=== PATIENT | male | born 1960 | race Caucasian/White ===

== ENCOUNTER 2018-08-16 08:15 | Outpatient (RCR) | payer BC, SELFPAY ==
--- NOTE | 2018-06-24 16:30 | PT.OPPOC ---
Current Diagnoses Presence of left artificial hip joint (06/24/18) Provider Visit Care Team Role Provider Type Froilan Hines MD Primary Care Provider Physician Specialty: Internal Medicine Address: [address] [place] [address], [id number] Email: Ronen Turcios MD Attending Provider Non-Staff Specialty: Orthopedic Surgery Address: [address] [place] [address], [id number] Email: Plan Of Care PT-OP-T Assessment and Plan Start: 06/07/18 14:05 Freq: Status: Active Protocol: Document 06/24/18 12:45 LRN (Rec: 06/24/18 17:03 LRN [id number]) Physical Therapy Assessment Rehab Potential Rehabilitation Potential Good Evaluation Complexity Number of Personal Factors/Comorbidities 1-2 Number of Body Systems Impaired 3 Clinical Presentation at Evaluation Stable Impairments Impairments Functional Activities Functional Mobility Pain Posture ROM Strength Other Concerns Barriers to Rehabilitation L RADAMES Goals Three Impairment Decreased L hip strength Penitentiary Goal (LTG) Stabilize L hip joint with elimination of pain on active L hip flexion. LTG Duration 08/16/18 Two Impairment L groin pain limiting function of lifting leg Penitentiary Goal (LTG) Pt will be able to lift the L leg to get in/out of a car, bed and with dressing without onset of pain. LTG Duration 08/16/18 One Impairment Lacks self halfway exercise program. Penitentiary Goal (LTG) Pt will be independent in a self halfway exercise program. LTG Duration 08/16/18 Assessment Summary Assessment The pt demonstrates possible intra-articular hip pathology with reproduction of his L anterior groin pain (positive Stinchfield Test and Anterior Labral Test). He has a muscle imbalance at the left hip due to weakness and a mobility imbalance that may be contributing to his intra- articular hip pathology. The pt will benefit from skilled physical therapy to improve mobility and strength at the hip, improve joint mechanics and minimize pain. Further assessment for possible Inguinal ligament involvement will be checked at his next visit. Physical Therapy Plan Frequency and Duration Frequency of Treatment 2x/Week Plan of Care Start Date 06/24/18 Plan of Care End Date 08/16/18 Therapeutic Interventions Therapeutic Interventions Home Exercise Program Joint Mobilizations Manual Therapy Neuromuscular Re-education Patient/Caregiver Education Self-Care/Home Management Soft Tissue Mobilization Therapeutic Exercises Modalities Cold Pack/Ice Massage Hot Packs Next Visit Focus/Plan Next Note Type Treatment Note Next Visit Plan Palpation for inguinal ligament, Iliopsoas involvement (hip joint mechanics), check gait/stairs and squatting, issue HEP of hip strengthening, improve pelvic positioning and posture , neuro-reeducation for proper seating of hip joint ball in socket, improve lumbar mobility, add lumbar stabilization. Plan of Care Dates Plan of Care Start Date 06/24/18 Plan of Care End Date 08/16/18 Please Sign and Return: I have reviewed this Plan of Care and certify that the skilled therapy services above are required to meet the patient?s needs. Physician Signature Date Printed Name and Credentials Clinical Instructor Signature Printed Name and Credentials
--- NOTE | 2018-06-24 16:30 | PT.OIE ---
Current Diagnoses Presence of left artificial hip joint (06/24/18) Past Medical History (Last Updated 02/14/18 @ 08:41 by Martha Johnson) Hyperlipidemia (Chronic) Hypertension (Chronic) Past Surgical History (Last Updated 02/14/18 @ 08:41 by Martha Johnson) Anesthesia (Resolved) History of hip replacement (Resolved 01/2012) Provider Visit Care Team Role Provider Type Froilan Hines MD Primary Care Provider Physician Specialty: Internal Medicine Address: [address] [place] [address], [id number] Email: Ronen Turcios MD Attending Provider Non-Staff Specialty: Orthopedic Surgery Address: [address] [place] [address], [id number] Email: Physical Therapy Initial Evaluation PT-OP-A Visit Information Start: 06/07/18 14:05 Freq: Status: Active Protocol: Document 06/24/18 12:45 LRN (Rec: 06/24/18 17:03 LRN [id number]) Out-Patient Physical Therapy Visit Information Visit Information Visit Type Initial Evaluation Visit Start Time 12:45 Visit Stop Time 13:42 Total Visit Minutes 57 Visit Number 1 Number of SHIP RIGGER APPRENTICE Visits 0 Evaluation Information Evaluation Date 06/24/18 PT-OP-B Current Condition Start: 06/07/18 14:05 Freq: Status: Active Protocol: Document 06/24/18 12:45 LRN (Rec: 06/24/18 17:03 LRN [id number]) Current Condition History of Current Condition Onset Date 1 yr ago Current Complaints L anterior groin pain. History of Current Condition Insidious onset. Pain present when lifting his leg and mildly with sit to stand. Prior Treatments and Tests L RADAMES - 01/2012 Future Testing and Treatments Planned None Treatment Goals Patient/Caregiver Goals Pt goal is to become painfree in order to avoid having a cortisone injection, that he feels will not be helpful. Prior Functional Status Baseline Function- ADL's Independent Baseline Function- Mobility Independent Current Functional Impairments (Reported) Functional Limitations- ADL's Any functional activity requiring open chain L hip flexion. 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 PT-OP-C Subjective Start: 06/07/18 14:05 Freq: Status: Active Protocol: Document 06/24/18 12:45 LRN (Rec: 06/24/18 17:03 LRN [id number]) Patient Questionnaires Lower Extremity Functional Scale LEFS Score 62 LEFS Impairment 20 to 39% Impaired (Score 48- 62) OP-PT Pain Assessment Pain Assessment Grid Paper Pain Assessment Grid Completed Yes Location L Anterior hip Pain Location Details L Groin region Intensity 6 Scale Used Numeric (1 - 10) Frequency When actively flexing the left hip Other Pain Alleviating Factors Discontinuing active flexing at the hip PT-OP-H Neuro Start: 06/07/18 14:05 Freq: Status: Active Protocol: Document 06/24/18 12:45 LRN (Rec: 06/24/18 17:03 LRN [id number]) Sensation Evaluation Gross Sensation Gross Sensation WNL Deep Tendon Reflex & Clonus Assessment Deep Tendon Reflex Achilles Deep Tendon Reflex 2+ Normal Bilateral Patellar Deep Tendon Reflex 2+ Normal PT-OP-J Posture/Palpation/Skin Start: 06/07/18 14:05 Freq: Status: Active Protocol: Document 06/24/18 12:45 LRN (Rec: 06/24/18 17:03 LRN [id number]) Posture Evaluation Position Standing Evaluation View All views Head/C-Spine Posture Neutral Position Shoulder Posture (L) Elevated Scapula Posture (L) Elevated (L) Winged Pelvis Posture (L) PSIS Posterior Knee Posture (L) Neutral (R) Neutral Foot Arch (R) Low Arch (L) No Arch Palpation Assessment Location Lumbar Spine Palpation Details No tenderness, decreased PA mobility. PT-OP-K Range of Motion Start: 06/07/18 14:05 Freq: Status: Active Protocol: Document 06/24/18 12:45 LRN (Rec: 06/24/18 17:03 LRN [id number]) Hip Goniometric Range of Motion Hip Measured in Degrees Right Passive Testing Position Supine Internal Rotation 45 External Rotation 55 Left Passive Testing Position Supine Internal Rotation 45 External Rotation 45 PT-OP-L Special Tests Start: 06/07/18 14:05 Freq: Status: Active Protocol: Document 06/24/18 12:45 LRN (Rec: 06/24/18 17:03 LRN [id number]) Special Tests Hip Special Tests Posterior Labral Test Test Results - Left Log Roll Test Test Results - Left Comments No pain. [facility] Hip Flexion Test Results + Left Comments L groin pain reproduced Anterior Labral Test Test Results + Left Comments L groin pain reproduced PT-OP-M Strength Start: 06/07/18 14:05 Freq: Status: Active Protocol: Document 06/24/18 12:45 LRN (Rec: 06/24/18 17:03 LRN [id number]) Hip Strength Hip Manual Muscle Testing Right Flexion (L2) 5 Normal Extension (S1) 4 Good Abduction 4 Good Adduction 5 Normal Left Flexion (L2) 2 Poor Extension (S1) 4 Good Abduction 4 Good Adduction 4 Good Comments Pain with testing of hip flexion and abduction. PT-OP-Q Treatments Start: 06/07/18 14:05 Freq: Status: Active Protocol: Document 06/24/18 12:45 LRN (Rec: 06/24/18 17:03 LRN [id number]) Therapeutic Exercises Sidelying Exercises Hip AD Side left Reps/Minutes 2 Comments Training Manual Therapy Treatment Manual Techniques MWM Type L3-L5 lift of spinous process and facets. Body Location Lumbar Body Position Standing Reps/Duration 4' Self-Care/Home Management Treatment Education Patient Education Home Exercise Program Posture Activities Self-Care/Home Management Activities I/S pt in home ex: L Leg lifts : AB/AD/Ext PT-OP-T Assessment and Plan Start: 06/07/18 14:05 Freq: Status: Active Protocol: Document 06/24/18 12:45 LRN (Rec: 06/24/18 17:03 LR [id number]) Physical Therapy Assessment Rehab Potential Rehabilitation Potential Good Evaluation Complexity Number of Personal Factors/Comorbidities 1-2 Number of Body Systems Impaired 3 Clinical Presentation at Evaluation Stable Impairments Impairments Functional Activities Functional Mobility Pain Posture ROM Strength Other Concerns Barriers to Rehabilitation L RADAMES Goals Three Impairment Decreased L hip strength Deckhand Oyster Dredge Goal (LTG) Stabilize L hip joint with elimination of pain on active L hip flexion. LTG Duration 08/16/18 Two Impairment L groin pain limiting function of lifting leg Longterm Goal (LTG) Pt will be able to lift the L leg to get in/out of a car, bed and with dressing without onset of pain. LTG Duration 08/16/18 One Impairment Lacks self custodial exercise program. Longterm Goal (LTG) Pt will be independent in a self custodial exercise program. LTG Duration 08/16/18 Assessment Summary Assessment The pt demonstrates possible intra-articular hip pathology with reproduction of his L anterior groin pain (positive Stinchfield Test and Anterior Labral Test). He has a muscle imbalance at the left hip due to weakness and a mobility imbalance that may be contributing to his intra- articular hip pathology. The pt will benefit from skilled physical therapy to improve mobility and strength at the hip, improve joint mechanics and minimize pain. Further assessment for possible Inguinal ligament involvement will be checked at his next visit. Physical Therapy Plan Frequency and Duration Frequency of Treatment 2x/Week Plan of Care Start Date 06/24/18 Plan of Care End Date 08/16/18 Therapeutic Interventions Therapeutic Interventions Home Exercise Program Joint Mobilizations Manual Therapy Neuromuscular Re-education Patient/Caregiver Education Self-Care/Home Management Soft Tissue Mobilization Therapeutic Exercises Modalities Cold Pack/Ice Massage Hot Packs Next Visit Focus/Plan Next Note Type Treatment Note Next Visit Plan Palpation for inguinal ligament, Iliopsoas involvement (hip joint mechanics), check gait/stairs and squatting, issue HEP of hip strengthening, improve pelvic positioning and posture , neuro-reeducation for proper seating of hip joint ball in socket, improve lumbar mobility, add lumbar stabilization.
--- NOTE | 2018-07-23 09:25 | PT.OTN ---
Current Diagnoses Presence of left artificial hip joint (07/23/18) Physical Therapy Treatment Note PT-OP-A Visit Information Start: 06/07/18 14:05 Freq: Status: Active Protocol: Document 07/23/18 08:18 LRN (Rec: 07/23/18 09:24 LRN [id number]) Out-Patient Physical Therapy Visit Information Visit Information Visit Type Treatment Note Visit Start Time 08:18 Visit Stop Time 09:10 Total Visit Minutes 52 Visit Number 2 Number of DELINQUENT NOTICE MACHINE OPERATOR Visits 0 Evaluation Information Evaluation Date 06/24/18 PT-OP-B Current Condition Start: 06/07/18 14:05 Freq: Status: Active Protocol: Document 06/24/18 12:45 LRN (Rec: 06/24/18 17:03 LRN [id number]) Current Condition History of Current Condition Onset Date 1 yr ago Current Complaints L anterior groin pain. History of Current Condition Insidious onset. Pain present when lifting his leg and mildly with sit to stand. Prior Treatments and Tests L 01/2012 Future Testing and Treatments Planned None Treatment Goals Patient/Caregiver Goals Pt goal is to become painfree in order to avoid having a cortisone injection, that he feels will not be helpful. Prior Functional Status Baseline Function- ADL's Independent Baseline Function- Mobility Independent Current Functional Impairments (Reported) Functional Limitations- ADL's Any functional activity requiring open chain L hip flexion. 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 PT-OP-C Subjective Start: 06/07/18 14:05 Freq: Status: Active Protocol: Document 07/23/18 08:18 LRN (Rec: 07/23/18 09:24 LRN [id number]) OP-PT Subjective Patient Comments Patient Comments No change. Doing ex's but not consistently. PT-OP-H Neuro Start: 06/07/18 14:05 Freq: Status: Active Protocol: Document 06/24/18 12:45 LRN (Rec: 06/24/18 17:03 LRN [id number]) Sensation Evaluation Gross Sensation Gross Sensation WNL Deep Tendon Reflex & Clonus Assessment Deep Tendon Reflex Achilles Deep Tendon Reflex 2+ Normal Bilateral Patellar Deep Tendon Reflex 2+ Normal PT-OP-J Posture/Palpation/Skin Start: 06/07/18 14:05 Freq: Status: Active Protocol: Document 06/24/18 12:45 LRN (Rec: 06/24/18 17:03 LRN [id number]) Posture Evaluation Position Standing Evaluation View All views Head/C-Spine Posture Neutral Position Shoulder Posture (L) Elevated Scapula Posture (L) Elevated (L) Winged Pelvis Posture (L) PSIS Posterior Knee Posture (L) Neutral (R) Neutral Foot Arch (R) Low Arch (L) No Arch Palpation Assessment Location Lumbar Spine Palpation Details No tenderness, decreased PA mobility. PT-OP-K Range of Motion Start: 06/07/18 14:05 Freq: Status: Active Protocol: Document 06/24/18 12:45 LRN (Rec: 06/24/18 17:03 LRN [id number]) Hip Goniometric Range of Motion Hip Measured in Degrees Right Passive Testing Position Supine Internal Rotation 45 External Rotation 55 Left Passive Testing Position Supine Internal Rotation 45 External Rotation 45 PT-OP-L Special Tests Start: 06/07/18 14:05 Freq: Status: Active Protocol: Document 06/24/18 12:45 LRN (Rec: 06/24/18 17:03 LRN [id number]) Special Tests Hip Special Tests Posterior Labral Test Test Results - Left Log Roll Test Test Results - Left Comments No pain. [facility] [place] Resisted Hip Flexion Test Results + Left Comments L groin pain reproduced Anterior Labral Test Test Results + Left Comments L groin pain reproduced PT-OP-M Strength Start: 06/07/18 14:05 Freq: Status: Active Protocol: Document 06/24/18 12:45 LRN (Rec: 06/24/18 17:03 LRN [id number]) Hip Strength Hip Manual Muscle Testing Right Flexion (L2) 5 Normal Extension (S1) 4 Good Abduction 4 Good Adduction 5 Normal Left Flexion (L2) 2 Poor Extension (S1) 4 Good Abduction 4 Good Adduction 4 Good Comments Pain with testing of hip flexion and abduction. PT-OP-Q Treatments Start: 06/07/18 14:05 Freq: Status: Active Protocol: Document 07/23/18 08:18 LRN (Rec: 07/23/18 09:24 LRN [id number]) Therapeutic Exercises Supine Exercises KTC Side left Reps/Minutes 3' Iliopsoas stretch Side left Reps/Minutes 3 Manual Therapy Treatment Soft Tissue Mobilization L lateral/intermedius Quad Mobilization Type Strumming Sustained Pressure Trigger Point Release Intensity/Depth Moderate Body Position Supine Comments No palpable L inguinal hernia noted. Neuro Re-Education Treatment Movement Re-Education Movement Re-education Activities Training for proper seating of femoral head in the acetabulum with hip flexion. Self-Care/Home Management Treatment Education Other Education Discussed plan of care and options of care (return to MD or PT), and self care for transfers in/out of car using arms to assist. PT-OP-T Assessment and Plan Start: 06/07/18 14:05 Freq: Status: Active Protocol: Document 07/23/18 08:18 LRN (Rec: 07/23/18 09:24 LRN [id number]) Physical Therapy Assessment Goals Three Impairment Decreased L hip strength Intermediate Goal (LTG) Stabilize L hip joint with elimination of pain on active L hip flexion. LTG Duration 08/16/18 Two Impairment L groin pain limiting function of lifting leg Intermediate Goal (LTG) Pt will be able to lift the L leg to get in/out of a car, bed and with dressing without onset of pain. LTG Duration 08/16/18 One Impairment Lacks self mcc exercise program. Intermediate Goal (LTG) Pt will be independent in a self mcc exercise program. LTG Duration 08/16/18 Progress Towards Goals Progress Towards Goals Progressing Toward Goals Progress Comments Goal #1 HEP: Initiated proper movement sequence Goal #2 Pt can march in supine 25% of time with assist and v ./physical cuing to 90 deg's hip flex w/o pain. Assessment Summary Assessment Pt was tender at L hip flexors proximally to palpation to start. He was able to get some relief of L anterior groin pain with assisted lift and verbal/physical cuing. Physical Therapy Plan Frequency and Duration Frequency of Treatment 2x/Week Plan of Care Start Date 06/24/18 Plan of Care End Date 08/16/18 Next Visit Focus/Plan Next Note Type Treatment Note Next Visit Plan Check squatting, start HEP of hip strengthening (AB/AD/ext), continue training of Iliopsoas proper sequencing ( hip joint mechanics), improve pelvic positioning and posture , improve lumbar mobility, add lumbar stabilization.
--- NOTE | 2018-07-26 10:20 | PT.OTN ---
Current Diagnoses Presence of left artificial hip joint (07/26/18) Physical Therapy Treatment Note PT-OP-A Visit Information Start: 06/07/18 14:05 Freq: Status: Active Protocol: Document 07/26/18 08:19 LRN (Rec: 07/26/18 09:01 LRN [id number]) Out-Patient Physical Therapy Visit Information Visit Information Visit Type Treatment Note Visit Start Time 08:19 Visit Stop Time 09:00 Total Visit Minutes 41 Visit Number 3 Number of MASS SPECTROMETRY SPECIALIST Visits 0 Evaluation Information Evaluation Date 06/24/18 PT-OP-B Current Condition Start: 06/07/18 14:05 Freq: Status: Active Protocol: Document 06/24/18 12:45 LRN (Rec: 06/24/18 17:03 LRN [id number]) Current Condition History of Current Condition Onset Date 1 yr ago Current Complaints L anterior groin pain. History of Current Condition Insidious onset. Pain present when lifting his leg and mildly with sit to stand. Prior Treatments and Tests L 01/2012 Future Testing and Treatments Planned None Treatment Goals Patient/Caregiver Goals Pt goal is to become painfree in order to avoid having a cortisone injection, that he feels will not be helpful. Prior Functional Status Baseline Function- ADL's Independent Baseline Function- Mobility Independent Current Functional Impairments (Reported) Functional Limitations- ADL's Any functional activity requiring open chain L hip flexion. 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 PT-OP-C Subjective Start: 06/07/18 14:05 Freq: Status: Active Protocol: Document 07/26/18 08:19 LRN (Rec: 07/26/18 09:01 LRN [id number]) OP-PT Subjective Patient Comments Patient Comments Does ex's here and there. PT-OP-H Neuro Start: 06/07/18 14:05 Freq: Status: Active Protocol: Document 06/24/18 12:45 LRN (Rec: 06/24/18 17:03 LRN [id number]) Sensation Evaluation Gross Sensation Gross Sensation WNL Deep Tendon Reflex & Clonus Assessment Deep Tendon Reflex Achilles Deep Tendon Reflex 2+ Normal Bilateral Patellar Deep Tendon Reflex 2+ Normal PT-OP-J Posture/Palpation/Skin Start: 06/07/18 14:05 Freq: Status: Active Protocol: Document 06/24/18 12:45 LRN (Rec: 06/24/18 17:03 LRN [id number]) Posture Evaluation Position Standing Evaluation View All views Head/C-Spine Posture Neutral Position Shoulder Posture (L) Elevated Scapula Posture (L) Elevated (L) Winged Pelvis Posture (L) PSIS Posterior Knee Posture (L) Neutral (R) Neutral Foot Arch (R) Low Arch (L) No Arch Palpation Assessment Location Lumbar Spine Palpation Details No tenderness, decreased PA mobility. PT-OP-K Range of Motion Start: 06/07/18 14:05 Freq: Status: Active Protocol: Document 06/24/18 12:45 LRN (Rec: 06/24/18 17:03 LRN [id number]) Hip Goniometric Range of Motion Hip Measured in Degrees Right Passive Testing Position Supine Internal Rotation 45 External Rotation 55 Left Passive Testing Position Supine Internal Rotation 45 External Rotation 45 PT-OP-L Special Tests Start: 06/07/18 14:05 Freq: Status: Active Protocol: Document 06/24/18 12:45 LRN (Rec: 06/24/18 17:03 LRN [id number]) Special Tests Hip Special Tests Posterior Labral Test Test Results - Left Log Roll Test Test Results - Left Comments No pain. [facility] Resisted Hip Flexion Test Results + Left Comments L groin pain reproduced Anterior Labral Test Test Results + Left Comments L groin pain reproduced PT-OP-M Strength Start: 06/07/18 14:05 Freq: Status: Active Protocol: Document 06/24/18 12:45 LRN (Rec: 06/24/18 17:03 LRN [id number]) Hip Strength Hip Manual Muscle Testing Right Flexion (L2) 5 Normal Extension (S1) 4 Good Abduction 4 Good Adduction 5 Normal Left Flexion (L2) 2 Poor Extension (S1) 4 Good Abduction 4 Good Adduction 4 Good Comments Pain with testing of hip flexion and abduction. PT-OP-Q Treatments Start: 06/07/18 14:05 Freq: Status: Active Protocol: Document 07/26/18 08:19 LRN (Rec: 07/26/18 09:01 LRN [id number]) Cardio Equipment Recumbent Stepper (Sci-Fit) Duration (Minutes) 10 Resistance 1 Other 19 Therapeutic Exercises Supine Exercises BKFO Supine Exercise Name Core Stab Side bilateral Resistance Lev 2 T-Band/Ball Reps/Minutes 10 x 2 sec holds Roll in/outs Side bilateral Resistance Lev 2 T-Band/Ball Reps/Minutes 10 with 6 sec holds Sidelying Exercises Clamshell Sidelying Exercise Name R sidelie Side left Reps/Minutes 15 Comments Self hand assist for leg Other Exercises Iliopsoas stretch Other Exercise Name Lunge on L knee Reps/Minutes 3' Comments 1' x 2 Manual Therapy Treatment Joint Mobilizations SIJ Joint Correction for anteriory rotated L innominate Body Position Supine Reps/Duration 8' Manual Techniques MWM standing Type With R hand: Moving L hip into AD; L hand: stabilize femur Body Position Standing Reps/Duration 7' MWM Type On Scifit: R hand: Moving L hip into AD; L hand: stabilize femur Body Position Sitting Reps/Duration 2' Self-Care/Home Management Treatment Education Patient Education Body Mechanics Home Exercise Program Other Education I/S pt in moving in/out of car , moving both legs at same time. HEP: Clamshell with T- Band issued (Lev 2). PT-OP-T Assessment and Plan Start: 06/07/18 14:05 Freq: Status: Active Protocol: Document 07/26/18 08:19 LRN (Rec: 07/26/18 09:01 LRN [id number]) Physical Therapy Assessment Progress Towards Goals Progress Towards Goals Progressing Toward Goals Progress Comments Goal #1 HEP: Proper sequencing taught & ex's added Goal #2 Pt can march in supine 25% of time with assist and v ./physical cuing to 90 deg's hip flex w/o pain. Assessment Summary Assessment He was able to get some relief of L anterior groin pain with MWM on the scifit but not in standing with hip at 90 deg's flexion. Pain relief with assisted lift of LLE. Pt has poor core control. Good tolerance to hip strengthening but weakness noted. Physical Therapy Plan Frequency and Duration Frequency of Treatment 2x/Week Plan of Care Start Date 06/24/18 Plan of Care End Date 08/16/18 Next Visit Focus/Plan Next Note Type Treatment Note Next Visit Plan Check squatting, Add HEP of hip strengthening (AD/ext), continue training of Iliopsoas proper sequencing (hip joint mechanics), improve pelvic positioning and posture, improve lumbar mobility, add lumbar stabilization.
--- NOTE | 2018-08-02 10:02 | PT.OTN ---
Current Diagnoses Presence of left artificial hip joint (08/02/18) Physical Therapy Treatment Note PT-OP-A Visit Information Start: 06/07/18 14:05 Freq: Status: Active Protocol: Document 08/02/18 08:12 [facility] (Rec: 08/02/18 10:02 [facility] [id number]) Out-Patient Physical Therapy Visit Information Visit Information Visit Type Treatment Note Visit Start Time 08:15 Visit Stop Time 09:00 Total Visit Minutes 45 Visit Number 4 Number of AIRWAY CONTROLLER Visits 0 PT-OP-B Current Condition Start: 06/07/18 14:05 Freq: Status: Active Protocol: Document 06/24/18 12:45 LRN (Rec: 06/24/18 17:03 LR [id number]) Current Condition History of Current Condition Onset Date 1 yr ago Current Complaints L anterior groin pain. History of Current Condition Insidious onset. Pain present when lifting his leg and mildly with sit to stand. Prior Treatments and Tests L 01/2012 Future Testing and Treatments Planned None Treatment Goals Patient/Caregiver Goals Pt goal is to become painfree in order to avoid having a cortisone injection, that he feels will not be helpful. Prior Functional Status Baseline Function- ADL's Independent Baseline Function- Mobility Independent Current Functional Impairments (Reported) Functional Limitations- ADL's Any functional activity requiring open chain L hip flexion. 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 PT-OP-C Subjective Start: 06/07/18 14:05 Freq: Status: Active Protocol: Document 08/02/18 08:12 [facility] (Rec: 08/02/18 10:02 [facility] [id number]) OP-PT Subjective Patient Comments Patient Comments Compliance with HEP, but has not noticed change yet. PT-OP-H Neuro Start: 06/07/18 14:05 Freq: Status: Active Protocol: Document 06/24/18 12:45 LRN (Rec: 06/24/18 17:03 LRN [id number]) Sensation Evaluation Gross Sensation Gross Sensation WNL Deep Tendon Reflex & Clonus Assessment Deep Tendon Reflex Achilles Deep Tendon Reflex 2+ Normal Bilateral Patellar Deep Tendon Reflex 2+ Normal PT-OP-J Posture/Palpation/Skin Start: 06/07/18 14:05 Freq: Status: Active Protocol: Document 06/24/18 12:45 LRN (Rec: 06/24/18 17:03 LRN [id number]) Posture Evaluation Position Standing Evaluation View All views Head/C-Spine Posture Neutral Position Shoulder Posture (L) Elevated Scapula Posture (L) Elevated (L) Winged Pelvis Posture (L) PSIS Posterior Knee Posture (L) Neutral (R) Neutral Foot Arch (R) Low Arch (L) No Arch Palpation Assessment Location Lumbar Spine Palpation Details No tenderness, decreased PA mobility. PT-OP-K Range of Motion Start: 06/07/18 14:05 Freq: Status: Active Protocol: Document 06/24/18 12:45 LRN (Rec: 06/24/18 17:03 LRN [id number]) Hip Goniometric Range of Motion Hip Measured in Degrees Right Passive Testing Position Supine Internal Rotation 45 External Rotation 55 Left Passive Testing Position Supine Internal Rotation 45 External Rotation 45 PT-OP-L Special Tests Start: 06/07/18 14:05 Freq: Status: Active Protocol: Document 06/24/18 12:45 LRN (Rec: 06/24/18 17:03 LRN [id number]) Special Tests Hip Special Tests Posterior Labral Test Test Results - Left Log Roll Test Test Results - Left Comments No pain. [facility] Flexion Test Results + Left Comments L groin pain reproduced Anterior Labral Test Test Results + Left Comments L groin pain reproduced PT-OP-M Strength Start: 06/07/18 14:05 Freq: Status: Active Protocol: Document 06/24/18 12:45 LRN (Rec: 06/24/18 17:03 LRN [id number]) Hip Strength Hip Manual Muscle Testing Right Flexion (L2) 5 Normal Extension (S1) 4 Good Abduction 4 Good Adduction 5 Normal Left Flexion (L2) 2 Poor Extension (S1) 4 Good Abduction 4 Good Adduction 4 Good Comments Pain with testing of hip flexion and abduction. PT-OP-Q Treatments Start: 06/07/18 14:05 Freq: Status: Active Protocol: Document 08/02/18 08:12 LR (Rec: 08/02/18 10:02 [facility] [id number]) Cardio Equipment Recumbent Stepper (Sci-Fit) Duration (Minutes) 5 Resistance 2 Other 17 Therapeutic Exercises Supine Exercises core facilitation Supine Exercise Name UE chop pattern to L for irradiation to core for improved faciliation Standing Exercises squat Standing Exercise Name squat w/cueing for form Reps/Minutes 15 iliopsoas stretch Standing Exercise Name iliopsoas stretch Side left Reps/Minutes 30 sec Manual Therapy Treatment Soft Tissue Mobilization iliacus Body Location iliacus & inguinal ligament Mobilization Type Rolling Sustained Pressure Intensity/Depth Moderate Body Position Supine Joint Mobilizations hip Joint hip Direction on axis ER FM gentle ant glide w/ER c/r PT-OP-T Assessment and Plan Start: 06/07/18 14:05 Freq: Status: Active Protocol: Document 08/02/18 08:12 [facility] (Rec: 08/02/18 10:02 [facility] [id number]) Physical Therapy Assessment Goals Three Impairment Decreased L hip strength Detention Goal (LTG) Stabilize L hip joint with elimination of pain on active L hip flexion. LTG Duration 08/16/18 Two Impairment L groin pain limiting function of lifting leg Detention Goal (LTG) Pt will be able to lift the L leg to get in/out of a car, bed and with dressing without onset of pain. LTG Duration 08/16/18 One Impairment Lacks self mcc exercise program. Portrait Studio Photographer Goal (LTG) Pt will be independent in a self mcc exercise program. LTG Duration 08/16/18 Assessment Summary Assessment Pt able to tolerate no hip flex to full ROM passively with no pain. He cont to demonstrate dec core control and cont to edu re: importance of this and his exercises. Pt has significant restriction in L iliacus & inguinal ligament with tenderness that improves with STM. He was encouraged to ice and sent with a to go ice pack today. Able to tolerate closed chain exercises including hip flexion. Physical Therapy Plan Frequency and Duration Frequency of Treatment 2x/Week Plan of Care Start Date 06/24/18 Plan of Care End Date 08/16/18 Next Visit Focus/Plan Next Note Type Treatment Note Next Visit Plan Add HEP of hip strengthening ( AD/ext), continue training of Iliopsoas proper sequencing ( hip joint mechanics), improve pelvic positioning and posture , improve lumbar mobility, add lumbar stabilization
--- NOTE | 2018-08-06 14:04 | PT.OTN ---
Current Diagnoses Presence of left artificial hip joint (08/06/18) Physical Therapy Treatment Note PT-OP-A Visit Information Start: 06/07/18 14:05 Freq: Status: Active Protocol: Document 08/06/18 08:16 LRN (Rec: 08/06/18 09:06 LRN [id number]) Out-Patient Physical Therapy Visit Information Visit Information Visit Type Treatment Note Visit Start Time 08:16 Visit Stop Time 09:04 Total Visit Minutes 48 Visit Number 5 Number of POCKET GRINDER OPERATOR Visits 0 Evaluation Information Evaluation Date 06/24/18 PT-OP-B Current Condition Start: 06/07/18 14:05 Freq: Status: Active Protocol: Document 06/24/18 12:45 LRN (Rec: 06/24/18 17:03 LRN [id number]) Current Condition History of Current Condition Onset Date 1 yr ago Current Complaints L anterior groin pain. History of Current Condition Insidious onset. Pain present when lifting his leg and mildly with sit to stand. Prior Treatments and Tests L 01/2012 Future Testing and Treatments Planned None Treatment Goals Patient/Caregiver Goals Pt goal is to become painfree in order to avoid having a cortisone injection, that he feels will not be helpful. Prior Functional Status Baseline Function- ADL's Independent Baseline Function- Mobility Independent Current Functional Impairments (Reported) Functional Limitations- ADL's Any functional activity requiring open chain L hip flexion. 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 PT-OP-C Subjective Start: 06/07/18 14:05 Freq: Status: Active Protocol: Document 08/06/18 08:16 LRN (Rec: 08/06/18 09:06 LRN [id number]) OP-PT Subjective Patient Comments Patient Comments Stretching more. Thinks maybe its not as noticeable. PT-OP-H Neuro Start: 06/07/18 14:05 Freq: Status: Active Protocol: Document 06/24/18 12:45 LRN (Rec: 06/24/18 17:03 LRN [id number]) Sensation Evaluation Gross Sensation Gross Sensation WNL Deep Tendon Reflex & Clonus Assessment Deep Tendon Reflex Achilles Deep Tendon Reflex 2+ Normal Bilateral Patellar Deep Tendon Reflex 2+ Normal PT-OP-J Posture/Palpation/Skin Start: 06/07/18 14:05 Freq: Status: Active Protocol: Document 06/24/18 12:45 LRN (Rec: 06/24/18 17:03 LRN [id number]) Posture Evaluation Position Standing Evaluation View All views Head/C-Spine Posture Neutral Position Shoulder Posture (L) Elevated Scapula Posture (L) Elevated (L) Winged Pelvis Posture (L) PSIS Posterior Knee Posture (L) Neutral (R) Neutral Foot Arch (R) Low Arch (L) No Arch Palpation Assessment Location Lumbar Spine Palpation Details No tenderness, decreased PA mobility. PT-OP-K Range of Motion Start: 06/07/18 14:05 Freq: Status: Active Protocol: Document 06/24/18 12:45 LRN (Rec: 06/24/18 17:03 LRN [id number]) Hip Goniometric Range of Motion Hip Measured in Degrees Right Passive Testing Position Supine Internal Rotation 45 External Rotation 55 Left Passive Testing Position Supine Internal Rotation 45 External Rotation 45 PT-OP-L Special Tests Start: 06/07/18 14:05 Freq: Status: Active Protocol: Document 06/24/18 12:45 LRN (Rec: 06/24/18 17:03 LRN [id number]) Special Tests Hip Special Tests Posterior Labral Test Test Results - Left Log Roll Test Test Results - Left Comments No pain. [facility] Flexion Test Results + Left Comments L groin pain reproduced Anterior Labral Test Test Results + Left Comments L groin pain reproduced PT-OP-M Strength Start: 06/07/18 14:05 Freq: Status: Active Protocol: Document 06/24/18 12:45 LRN (Rec: 06/24/18 17:03 LRN [id number]) Hip Strength Hip Manual Muscle Testing Right Flexion (L2) 5 Normal Extension (S1) 4 Good Abduction 4 Good Adduction 5 Normal Left Flexion (L2) 2 Poor Extension (S1) 4 Good Abduction 4 Good Adduction 4 Good Comments Pain with testing of hip flexion and abduction. PT-OP-Q Treatments Start: 06/07/18 14:05 Freq: Status: Active Protocol: Document 08/06/18 08:16 LRN (Rec: 08/06/18 09:06 LRN [id number]) Cardio Equipment Recumbent Stepper (Sci-Fit) Duration (Minutes) 13 Resistance 2 Other 17 Therapeutic Exercises Supine Exercises Iliopsoas stretch Side left Reps/Minutes 5 Prone Exercises Hip Ext Side right Reps/Minutes 8' Comments Training needed for core stab with exercise. Standing Exercises squat Standing Exercise Name squat w/cueing for form Reps/Minutes 15 iliopsoas stretch Standing Exercise Name iliopsoas stretch Side left Reps/Minutes 30 sec Other Exercises Iliopsoas stretch Other Exercise Name Lunge on L knee Side left Reps/Minutes 3' Comments 1' x 2 Manual Therapy Treatment Soft Tissue Mobilization iliacus Body Location L. Iliacus & Inguinal ligament Mobilization Type Rolling Sustained Pressure Intensity/Depth Moderate Body Position Supine Joint Mobilizations SIJ Joint Correction for a L innominate Outflare Body Position Supine Reps/Duration 8' Manual Techniques MWM Type On Scifit: R hand: Moving L hip into AD; L hand: stabilize femur Body Position Sitting Reps/Duration 2' Comments R hand stabilize femur, added Inferior glide of femur. PT-OP-T Assessment and Plan Start: 06/07/18 14:05 Freq: Status: Active Protocol: Document 08/06/18 08:16 LRN (Rec: 08/06/18 09:06 LRN [id number]) Physical Therapy Assessment Other Concerns Barriers to Rehabilitation L RADAMES Progress Towards Goals Progress Towards Goals Progressing Toward Goals Progress Comments Goal #1 HEP: Proper sequencing taught & ex's added Goal #2 Slight lessening of pain with lifting of leg for dressing. Pt can march in supine 25% of time with assist and v./physical cuing to 90 deg's hip flex w/o pain. Assessment Summary Assessment Pt is s/p old L RADAMES. Palpable pain present at L inguinal ligament. He demonstrates dec core control and needs cont'd edu re: importance of core stabs with his exercises . Pt has less restriction in L iliacus & inguinal ligament. Today no change with tenderness with STM. He was encouraged to ice. Pain with heel slide at end of treatment . Improved ability to stabilize core with prone hip ext by end of exercise training. Trunk and Sacrum was in L rotation, not able to stabilize correctioin. Physical Therapy Plan Frequency and Duration Frequency of Treatment 2x/Week Plan of Care Start Date 06/24/18 Plan of Care End Date 08/16/18 Next Visit Focus/Plan Next Note Type Treatment Note Next Visit Plan Check for lumbar/sacral positioning and correct L rotation if needed. Add HEP of hip strengthening (AD/ext), continue training of Iliopsoas proper sequencing ( hip joint mechanics), improve pelvic positioning and posture , improve lumbar mobility, progress lumbar stabilization
--- NOTE | 2018-08-09 15:02 | PT.OTN ---
Current Diagnoses Presence of left artificial hip joint (08/09/18) Physical Therapy Treatment Note PT-OP-A Visit Information Start: 06/07/18 14:05 Freq: Status: Active Protocol: Document 08/09/18 08:15 LRN (Rec: 08/09/18 09:01 LRN [id number]) Out-Patient Physical Therapy Visit Information Visit Information Visit Type Progress Note Visit Start Time 08:15 Visit Stop Time 09:10 Total Visit Minutes 55 Visit Number 6 Number of GEEK SQUAD MANAGER Visits 0 Evaluation Information Evaluation Date 06/24/18 PT-OP-B Current Condition Start: 06/07/18 14:05 Freq: Status: Active Protocol: Document 06/24/18 12:45 LRN (Rec: 06/24/18 17:03 LRN [id number]) Current Condition History of Current Condition Onset Date 1 yr ago Current Complaints L anterior groin pain. History of Current Condition Insidious onset. Pain present when lifting his leg and mildly with sit to stand. Prior Treatments and Tests L 01/2012 Future Testing and Treatments Planned None Treatment Goals Patient/Caregiver Goals Pt goal is to become painfree in order to avoid having a cortisone injection, that he feels will not be helpful. Prior Functional Status Baseline Function- ADL's Independent Baseline Function- Mobility Independent Current Functional Impairments (Reported) Functional Limitations- ADL's Any functional activity requiring open chain L hip flexion. 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 PT-OP-C Subjective Start: 06/07/18 14:05 Freq: Status: Active Protocol: Document 08/09/18 08:15 LRN (Rec: 08/09/18 09:01 LRN [id number]) OP-PT Subjective Patient Comments Patient Comments Not consistent with ex's. No change. PT-OP-H Neuro Start: 06/07/18 14:05 Freq: Status: Active Protocol: Document 06/24/18 12:45 LRN (Rec: 06/24/18 17:03 LRN [id number]) Sensation Evaluation Gross Sensation Gross Sensation WNL Deep Tendon Reflex & Clonus Assessment Deep Tendon Reflex Achilles Deep Tendon Reflex 2+ Normal Bilateral Patellar Deep Tendon Reflex 2+ Normal PT-OP-J Posture/Palpation/Skin Start: 06/07/18 14:05 Freq: Status: Active Protocol: Document 06/24/18 12:45 LRN (Rec: 06/24/18 17:03 LRN [id number]) Posture Evaluation Position Standing Evaluation View All views Head/C-Spine Posture Neutral Position Shoulder Posture (L) Elevated Scapula Posture (L) Elevated (L) Winged Pelvis Posture (L) PSIS Posterior Knee Posture (L) Neutral (R) Neutral Foot Arch (R) Low Arch (L) No Arch Palpation Assessment Location Lumbar Spine Palpation Details No tenderness, decreased PA mobility. PT-OP-K Range of Motion Start: 06/07/18 14:05 Freq: Status: Active Protocol: Document 06/24/18 12:45 LRN (Rec: 06/24/18 17:03 LRN [id number]) Hip Goniometric Range of Motion Hip Measured in Degrees Right Passive Testing Position Supine Internal Rotation 45 External Rotation 55 Left Passive Testing Position Supine Internal Rotation 45 External Rotation 45 PT-OP-L Special Tests Start: 06/07/18 14:05 Freq: Status: Active Protocol: Document 06/24/18 12:45 LRN (Rec: 06/24/18 17:03 LRN [id number]) Special Tests Hip Special Tests Posterior Labral Test Test Results - Left Log Roll Test Test Results - Left Comments No pain. [facility] Flexion Test Results + Left Comments L groin pain reproduced Anterior Labral Test Test Results + Left Comments L groin pain reproduced PT-OP-M Strength Start: 06/07/18 14:05 Freq: Status: Active Protocol: Document 06/24/18 12:45 LRN (Rec: 06/24/18 17:03 LRN [id number]) Hip Strength Hip Manual Muscle Testing Right Flexion (L2) 5 Normal Extension (S1) 4 Good Abduction 4 Good Adduction 5 Normal Left Flexion (L2) 2 Poor Extension (S1) 4 Good Abduction 4 Good Adduction 4 Good Comments Pain with testing of hip flexion and abduction. PT-OP-Q Treatments Start: 06/07/18 14:05 Freq: Status: Active Protocol: Document 08/09/18 08:15 LRN (Rec: 08/09/18 09:01 LRN [id number]) Therapeutic Exercises Supine Exercises Roll in/outs Side bilateral Resistance Lev 2 T-Band/Ball Reps/Minutes 10 with 6 sec holds KTC Side left Reps/Minutes 3' Iliopsoas stretch Side left Reps/Minutes 5 Prone Exercises BRITNI Reps/Minutes 10x Other Exercises Iliopsoas stretch Other Exercise Name Lunge on L knee Side left Reps/Minutes 3' Comments 1' x 2 Manual Therapy Treatment Soft Tissue Mobilization iliacus Body Location L. Iliacus & Inguinal ligament Mobilization Type Rolling Sustained Pressure Intensity/Depth Moderate Body Position Supine L lateral/intermedius Quad Mobilization Type Myofascial Release Intensity/Depth Superficial Body Position Supine Comments No palpable L inguinal hernia noted. Joint Mobilizations SIJ Joint Correction for a L innominate anterior rot Body Position Supine Reps/Duration 8' Self-Care/Home Management Treatment Education Other Education Discussed need for being consistent with home ex's. PT-OP-T Assessment and Plan Start: 06/07/18 14:05 Freq: Status: Active Protocol: Document 08/09/18 08:15 LRN (Rec: 08/09/18 09:01 LRN [id number]) Physical Therapy Assessment Rehab Potential Rehabilitation Potential Fair Evaluation Complexity Number of Personal Factors/Comorbidities 1-2 Number of Body Systems Impaired 3 Clinical Presentation at Evaluation Stable Impairments Impairments Functional Activities Functional Mobility Pain Posture ROM Strength Other Concerns Barriers to Rehabilitation L RADAMES Goals Three Impairment Decreased L hip strength Linux Network Administrator Goal (LTG) Stabilize L hip joint with elimination of pain on active L hip flexion. LTG Duration 08/16/18 (Minimal change) Two Impairment L groin pain limiting function of lifting leg Linux Network Administrator Goal (LTG) Pt will be able to lift the L leg to get in/out of a car, bed and with dressing without onset of pain. LTG Duration 08/16/18 (Minimial change) One Impairment Lacks self senior living exercise program. Linux Network Administrator Goal (LTG) Pt will be independent in a self senior living exercise program. LTG Duration 08/16/18 (Progressing) Progress Towards Goals Progress Towards Goals Progressing Toward Goals Progress Comments Goal #1 HEP: Proper sequencing taught & home ex's added Goal #2 Slight lessening of pain with lifting of leg for dressing. Pt can march in supine 25% of time with assist and v./physical cuing to 90 deg's hip flex w/o pain. Goal #3 HEP is being progressed. Assessment Summary Assessment Pt is s/p old L RADAMES. Palpable pain present at L inguinal ligament. He demonstrates dec core control and needs cont'd encouragement to do his exercises. Pt has less swelling in L iliacus & inguinal ligament, no change with tenderness on palpation. He was encouraged to ice more. Trunk and Sacrum was in L rotation and was able to correct, but not able to stabilize between treatments. The pt appears to have some swelling at the L Iliacus & Inguinal Ligament that may respond well to Iontophoresis; therefore recommend trying Iontophoresis to minimize L hip pain. Physical Therapy Plan Frequency and Duration Frequency of Treatment 2x/Week Plan of Care Start Date 06/24/18 Plan of Care End Date 08/23/18 Therapeutic Interventions Therapeutic Interventions Home Exercise Program Joint Mobilizations Manual Therapy Neuromuscular Re-education Patient/Caregiver Education Self-Care/Home Management Soft Tissue Mobilization Therapeutic Exercises Modalities Cold Pack/Ice Massage Hot Packs Other Therapeutic Interventions Iontophoresis with Dexamethasone and Sodium Phosphate. Next Visit Focus/Plan Next Note Type Treatment Note Next Visit Plan Initiate Iontophoresis when Plan of Care returned. Check for lumbar/sacral positioning and correct if needed. Add HEP of hip strengthening (AD/ ext), recheck Iliopsoas proper sequencing (hip joint mechanics), improve pelvic positioning and posture, lumbar mobility, and progress lumbar stabilization.
--- NOTE | 2018-08-09 15:02 | PT.OPPOC ---
Current Diagnoses Presence of left artificial hip joint (08/09/18) Provider Visit Care Team Role Provider Type Froilan Hines MD Primary Care Provider Physician Specialty: Internal Medicine Address: [address] [place] [address], [id number] Email: Ronen Turcios MD Attending Provider Non-Staff Specialty: Orthopedic Surgery Address: [address] [place] [address], [id number] Email: Plan Of Care PT-OP-T Assessment and Plan Start: 06/07/18 14:05 Freq: Status: Active Protocol: Document 08/09/18 08:15 LRN (Rec: 08/09/18 09:01 LRN [id number]) Physical Therapy Assessment Rehab Potential Rehabilitation Potential Fair Evaluation Complexity Number of Personal Factors/Comorbidities 1-2 Number of Body Systems Impaired 3 Clinical Presentation at Evaluation Stable Impairments Impairments Functional Activities Functional Mobility Pain Posture ROM Strength Other Concerns Barriers to Rehabilitation L RADAMES Goals Three Impairment Decreased L hip strength Detention Goal (LTG) Stabilize L hip joint with elimination of pain on active L hip flexion. LTG Duration 08/16/18 (Minimal change) Two Impairment L groin pain limiting function of lifting leg Detention Goal (LTG) Pt will be able to lift the L leg to get in/out of a car, bed and with dressing without onset of pain. LTG Duration 08/16/18 (Minimial change) One Impairment Lacks self nursing home exercise program. Detention Goal (LTG) Pt will be independent in a self nursing home exercise program. LTG Duration 08/16/18 (Progressing) Progress Towards Goals Progress Towards Goals Progressing Toward Goals Progress Comments Goal #1 HEP: Proper sequencing taught & home ex's added Goal #2 Slight lessening of pain with lifting of leg for dressing. Pt can march in supine 25% of time with assist and v./physical cuing to 90 deg's hip flex w/o pain. Goal #3 HEP is being progressed. Assessment Summary Assessment Pt is s/p old L RADAMES. Palpable pain present at L inguinal ligament. He demonstrates dec core control and needs cont'd encouragement to do his exercises. Pt has less swelling in L iliacus & inguinal ligament, no change with tenderness on palpation. He was encouraged to ice more. Trunk and Sacrum was in L rotation and was able to correct, but not able to stabilize between treatments. The pt appears to have some swelling at the L Iliacus & Inguinal Ligament that may respond well to Iontophoresis; therefore recommend trying Iontophoresis to minimize L hip pain. Physical Therapy Plan Frequency and Duration Frequency of Treatment 2x/Week Plan of Care Start Date 06/24/18 Plan of Care End Date 08/23/18 Therapeutic Interventions Therapeutic Interventions Home Exercise Program Joint Mobilizations Manual Therapy Neuromuscular Re-education Patient/Caregiver Education Self-Care/Home Management Soft Tissue Mobilization Therapeutic Exercises Modalities Cold Pack/Ice Massage Hot Packs Other Therapeutic Interventions Iontophoresis with Dexamethasone and Sodium Phosphate. Next Visit Focus/Plan Next Note Type Treatment Note Next Visit Plan Initiate Iontophoresis when Plan of Care returned. Check for lumbar/sacral positioning and correct if needed. Add HEP of hip strengthening (AD/ ext), recheck Iliopsoas proper sequencing (hip joint mechanics), improve pelvic positioning and posture, lumbar mobility, and progress lumbar stabilization. Plan of Care Dates Plan of Care Start Date 06/24/18 Plan of Care End Date 08/23/18 Please Sign and Return: I have reviewed this Plan of Care and certify that the skilled therapy services above are required to meet the patient?s needs. Physician Signature Date Printed Name and Credentials Clinical Instructor Signature Printed Name and Credentials
--- NOTE | 2018-08-13 11:59 | PT.OTN ---
Current Diagnoses Presence of left artificial hip joint (08/13/18) Physical Therapy Treatment Note PT-OP-A Visit Information Start: 06/07/18 14:05 Freq: Status: Active Protocol: Document 08/13/18 08:15 LRN (Rec: 08/13/18 09:04 LRN [id number]) Out-Patient Physical Therapy Visit Information Visit Information Visit Type Progress Note Visit Note Requesting extension of Plan of Care. 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 History of Current Condition Insidious onset. Pain present when lifting his leg and mildly with sit to stand. Prior Treatments and Tests L 01/2012 Future Testing and Treatments Planned None Treatment Goals Patient/Caregiver Goals Pt goal is to become painfree in order to avoid having a cortisone injection, that he feels will not be helpful. Prior Functional Status Baseline Function- ADL's Independent Baseline Function- Mobility Independent Current Functional Impairments (Reported) Functional Limitations- ADL's Any functional activity requiring open chain L hip flexion. 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 PT-OP-C Subjective Start: 06/07/18 14:05 Freq: Status: Active Protocol: Document 08/13/18 08:15 LRN (Rec: 08/13/18 09:04 LRN [id number]) OP-PT Subjective Patient Comments Patient Comments No significant change. Going on vacation day after next visit. Agreeable to one more week of therapy on return for iontophoresis. PT-OP-H Neuro Start: 06/07/18 14:05 Freq: Status: Active Protocol: Document 06/24/18 12:45 LRN (Rec: 06/24/18 17:03 LRN [id number]) Sensation Evaluation Gross Sensation Gross Sensation WNL Deep Tendon Reflex & Clonus Assessment Deep Tendon Reflex Achilles Deep Tendon Reflex 2+ Normal Bilateral Patellar Deep Tendon Reflex 2+ Normal PT-OP-J Posture/Palpation/Skin Start: 06/07/18 14:05 Freq: Status: Active Protocol: Document 06/24/18 12:45 LRN (Rec: 06/24/18 17:03 LRN [id number]) Posture Evaluation Position Standing Evaluation View All views Head/C-Spine Posture Neutral Position Shoulder Posture (L) Elevated Scapula Posture (L) Elevated (L) Winged Pelvis Posture (L) PSIS Posterior Knee Posture (L) Neutral (R) Neutral Foot Arch (R) Low Arch (L) No Arch Palpation Assessment Location Lumbar Spine Palpation Details No tenderness, decreased PA mobility. PT-OP-K Range of Motion Start: 06/07/18 14:05 Freq: Status: Active Protocol: Document 06/24/18 12:45 LRN (Rec: 06/24/18 17:03 LRN [id number]) Hip Goniometric Range of Motion Hip Measured in Degrees Right Passive Testing Position Supine Internal Rotation 45 External Rotation 55 Left Passive Testing Position Supine Internal Rotation 45 External Rotation 45 PT-OP-L Special Tests Start: 06/07/18 14:05 Freq: Status: Active Protocol: Document 06/24/18 12:45 LRN (Rec: 06/24/18 17:03 LRN [id number]) Special Tests Hip Special Tests Posterior Labral Test Test Results - Left Log Roll Test Test Results - Left Comments No pain. Stinchfield Resisted Hip Flexion Test Results + Left Comments L groin pain reproduced Anterior Labral Test Test Results + Left Comments L groin pain reproduced PT-OP-M Strength Start: 06/07/18 14:05 Freq: Status: Active Protocol: Document 06/24/18 12:45 LRN (Rec: 06/24/18 17:03 LRN [id number]) Hip Strength Hip Manual Muscle Testing Right Flexion (L2) 5 Normal Extension (S1) 4 Good Abduction 4 Good Adduction 5 Normal Left Flexion (L2) 2 Poor Extension (S1) 4 Good Abduction 4 Good Adduction 4 Good Comments Pain with testing of hip flexion and abduction. PT-OP-Q Treatments Start: 06/07/18 14:05 Freq: Status: Active Protocol: Document 08/13/18 08:15 LRN (Rec: 08/13/18 09:04 LRN [id number]) Gym Equipment Cable Column (Body Solid) Leg Extension Details Seat: 1 hole showing Resistance 20# Reps/Time 10x2 Leg Curl Details Seat: 1 hole showing Resistance 50# Reps/Time 15x2 Therapeutic Exercises Supine Exercises Roll in/outs Side bilateral Resistance Lev 2 T-Band/Ball Reps/Minutes 10 with 6 sec holds Prone Exercises Hip Ext Side right Resistance 4#,2#,1# Reps/Minutes 10 reps each Comments Training needed for core stab with exercise. Sidelying Exercises Clamshell Sidelying Exercise Name R sidelie Side left Reps/Minutes 15 Comments Self hand assist for leg Hip AD Side left Reps/Minutes 10x3 Comments Training Manual Therapy Treatment Joint Mobilizations hip Joint hip Direction on axis ER FM gentle ant glide w/ER c/r SIJ Joint Self Correction for a L innominate anterior rot Body Position Supine Reps/Duration 8' Self-Care/Home Management Treatment Education Patient Education Home Exercise Program Other Education Issued and reviewed HEP: Hip extension strengthening. PT-OP-T Assessment and Plan Start: 06/07/18 14:05 Freq: Status: Active Protocol: Document 08/13/18 08:15 LRN (Rec: 08/13/18 09:04 LRN [id number]) Physical Therapy Assessment Impairments Impairments Functional Activities Functional Mobility Pain Posture ROM Strength Other Concerns Barriers to Rehabilitation L RADAMES Goals Three Impairment Decreased L hip strength Usp Goal (LTG) Stabilize L hip joint with elimination of pain on active L hip flexion. LTG Duration 08/16/18 (Minimal change) Two Impairment L groin pain limiting function of lifting leg Bioinformatics Developer Goal (LTG) Pt will be able to lift the L leg to get in/out of a car, bed and with dressing without onset of pain. LTG Duration 08/16/18 (Minimial change) One Impairment Lacks self [facility] exercise program. Usp Goal (LTG) Pt will be independent in a self [facility]itent[facility] exercise program. LTG Duration 08/16/18 (Progressing) Progress Towards Goals Progress Towards Goals Progressing Toward Goals Progress Comments Goal #1 HEP: Proper sequencing taught & home ex's added Goal #2 Slight lessening of pain with lifting of leg for dressing. Pt can march in supine 25% of time with assist and v./physical cuing to 90 deg's hip flex w/o pain. Goal #3 HEP is being progressed. Assessment Summary Assessment Pt is s/p old L RADAMES with anterior hip pain due to soft tissue inflammation and possible inguinal hernia. The pt appears to have some swelling at the L Iliacus & Inguinal Ligament that may respond well to Iontophoresis; therefore recommend trying Iontophoresis to minimize L hip pain. He demonstrates decreased core control and needs cont'd encouragement to do his exercises. He also is very weak in his hip strength. Trunk and Sacrum was in L rotation and was able to correct, but not able to stabilize between treatments. Due to the pt's vacation schedule the pt would like to resume therapy on his return from vacation for iontophoresis treatments; therefore extension of his therapy plan of care is needed . The pt would benefit from extending his plan of care for further physical therapy treatments, to include iontophoresis on his return from vacation in mid August. Physical Therapy Plan Frequency and Duration Frequency of Treatment 2x/Week Plan of Care Start Date 06/24/18 Plan of Care End Date 09/13/18 Therapeutic Interventions Therapeutic Interventions Home Exercise Program Joint Mobilizations Manual Therapy Neuromuscular Re-education Patient/Caregiver Education Self-Care/Home Management Soft Tissue Mobilization Therapeutic Exercises Modalities Cold Pack/Ice Massage Hot Packs Other Therapeutic Interventions Iontophoresis with 4 mg/mL Dexamethasone and Sodium Phosphate. Next Visit Focus/Plan Next Note Type Treatment Note Next Visit Plan Initiate Iontophoresis when Plan of Care returned. Check for lumbar/sacral positioning and correct if needed. Recheck Iliopsoas proper sequencing (hip joint mechanics), improve pelvic positioning and posture, lumbar mobility, and progress lumbar stabilization with LE strengthening.
--- NOTE | 2018-08-13 12:00 | PT.OPPOC ---
Current Diagnoses Presence of left artificial hip joint (08/13/18) Provider Visit Care Team Role Provider Type Froilan Hines MD Primary Care Provider Physician Specialty: Internal Medicine Address: [address] [place] [address], [id number] Email: Ronen Turcios MD Attending Provider Non-Staff Specialty: Orthopedic Surgery Address: [address] [place] [address], [id number] Email: Plan Of Care PT-OP-T Assessment and Plan Start: 06/07/18 14:05 Freq: Status: Active Protocol: Document 08/13/18 08:15 LRN (Rec: 08/13/18 09:04 LRN [id number]) Physical Therapy Assessment Impairments Impairments Functional Activities Functional Mobility Pain Posture ROM Strength Other Concerns Barriers to Rehabilitation L RADAMES Goals Three Impairment Decreased L hip strength Correction Goal (LTG) Stabilize L hip joint with elimination of pain on active L hip flexion. LTG Duration 08/16/18 (Minimal change) Two Impairment L groin pain limiting function of lifting leg [employer]inder [employer] Goal (LTG) Pt will be able to lift the L leg to get in/out of a car, bed and with dressing without onset of pain. LTG Duration 08/16/18 (Minimial change) One Impairment Lacks self long term exercise program. [employer] Goal (LTG) Pt will be independent in a self long term exercise program. LTG Duration 08/16/18 (Progressing) Progress Towards Goals Progress Towards Goals Progressing Toward Goals Progress Comments Goal #1 HEP: Proper sequencing taught & home ex's added Goal #2 Slight lessening of pain with lifting of leg for dressing. Pt can march in supine 25% of time with assist and v./physical cuing to 90 deg's hip flex w/o pain. Goal #3 HEP is being progressed. Assessment Summary Assessment Pt is s/p old L RADAMES with anterior hip pain due to soft tissue inflammation and possible inguinal hernia. The pt appears to have some swelling at the L Iliacus & Inguinal Ligament that may respond well to Iontophoresis; therefore recommend trying Iontophoresis to minimize L hip pain. He demonstrates decreased core control and needs cont'd encouragement to do his exercises. He also is very weak in his hip strength. Trunk and Sacrum was in L rotation and was able to correct, but not able to stabilize between treatments. Due to the pt's vacation schedule the pt would like to resume therapy on his return from vacation for iontophoresis treatments; therefore extension of his therapy plan of care is needed . The pt would benefit from extending his plan of care for further physical therapy treatments, to include iontophoresis on his return from vacation in mid August. Physical Therapy Plan Frequency and Duration Frequency of Treatment 2x/Week Plan of Care Start Date 06/24/18 Plan of Care End Date 09/13/18 Therapeutic Interventions Therapeutic Interventions Home Exercise Program Joint Mobilizations Manual Therapy Neuromuscular Re-education Patient/Caregiver Education Self-Care/Home Management Soft Tissue Mobilization Therapeutic Exercises Modalities Cold Pack/Ice Massage Hot Packs Other Therapeutic Interventions Iontophoresis with 4 mg/mL Dexamethasone and Sodium Phosphate. Next Visit Focus/Plan Next Note Type Treatment Note Next Visit Plan Initiate Iontophoresis when Plan of Care returned. Check for lumbar/sacral positioning and correct if needed. Recheck Iliopsoas proper sequencing (hip joint mechanics), improve pelvic positioning and posture, lumbar mobility, and progress lumbar stabilization with LE strengthening. Plan of Care Dates Plan of Care Start Date 06/24/18 Plan of Care End Date 09/13/18 Please Sign and Return: I have reviewed this Plan of Care and certify that the skilled therapy services above are required to meet the patient?s needs. Physician Signature Date Printed Name and Credentials Clinical Instructor Signature Printed Name and Credentials
--- NOTE | 2019-03-17 15:14 | PT-OP ANOTE ---
Per phone conversation Mr Flores states there has been no change in his L groin pain whether he was on vacation or while at work. States he just got back from a 2nd vacation with no change in hip pain. Feels when he becomes functionally hindered he will seek surgical intervention. Currently he feels he is not functionally hindered. Pt agreeable to DC from therapy. No further therapy planned.
== END 2019-05-02 13:41 ==
LOC: PHYS 08:15
PROVIDERS: PCP Internal Medicine; Visit Provider Orthopaedic Surgery
DX: Z96.642 Presence of left artificial hip joint (principal)
CPT/HCPCS: 97010; 97110; 97112; 97140; 97161; 97530; 97535

== ENCOUNTER → 2019-08-07 19:35 | Outpatient (ROUT) | payer BC, SELFPAY ==
[2019-08-07 20:26] LABS: Aspartate Aminotransferase 47 IU/L (17-59); BUN Creatinine Ratio 20.9 (6-22); Blood Urea Nitrogen 23 mg/dL (9-20); Calcium 9.6 mg/dL (8.4-10.2); Carbon Dioxide 29 mmol/L (22-32); Chloride 104 mmol/L (98-107); Cholesterol 199 mg/dL (140-199); Estimated Glomerular Filt Rate > 60.0 mL/min (>60); Glucose 96 mg/dL (80-110); HDL Cholesterol 60 mg/dL (40-60); HEMOLYSIS < 15 (0-50); LDL Cholesterol Calculated 108 mg/dL (<100); Sodium 141 mmol/L (137-145); Triglycerides 153 mg/dL (35-150)
[2019-08-07 20:54] LABS: Prostate Specific Antigen 4.62 ng/mL (0.10-4.00)
== END ==
PROVIDERS: PCP Internal Medicine; Visit Provider Internal Medicine
DX: Z00.00 Encounter for general adult medical examination without abnormal findings (principal); I10 Essential (primary) hypertension; E78.2 Mixed hyperlipidemia
CPT/HCPCS: 80048; 80061; 84153; 84450

== ENCOUNTER → 2019-11-04 08:31 | Outpatient (CLI) | payer BC, SELFPAY ==
[2019-11-05 08:11] LABS: PSA Free % 17.2 % (.)
== END ==
PROVIDERS: PCP Internal Medicine; Referring Provider Internal Medicine; Visit Provider Internal Medicine
DX: Z00.00 Encounter for general adult medical examination without abnormal findings (principal)
CPT/HCPCS: 36415; 84153; 84154

== ENCOUNTER → 2020-11-29 12:31 | Outpatient (CLI) | payer BC, SELFPAY ==
--- NOTE | 2020-11-29 | DI.MRI.S_ITS ---
PROCEDURE: MR HIP LT WO CON INDICATIONS: Other bursitis of hip, left hip TECHNIQUE: Noncontrast coronal T1 spin echo and STIR through the bony pelvis. Coronal and axial T2 fast spin echo with fat saturation, sagittal T1 spin echo, and oblique axial T2 fast spin echo with fat saturation through the hip. COMPARISON: [facility] [place], CR, XR PELVIS WITH LATERAL HIP LEFT, 11/10/2020, 8:55. FINDINGS: Image quality: Diagnostic. Susceptibility artifacts are noted in left hip from prosthesis. Bones and joints: Patient is status post left total hip arthroplasty with susceptibility artifacts slightly limits evaluation of osseous structures. There is no gross marrow edema. No fracture or dislocation. The visualized lower lumbar spine appears normally aligned. Tendons and ligaments: The gluteus medius and minimus tendinosis near greater trochanter is seen, without associated muscle atrophy. The nearby proximal iliotibial band also appears intact. The iliopsoas tendon appears intact, without adjacent bursal fluid collections or evidence for impingement syndrome. The origin of the hamstring tendon is thickened at the ischial tuberosity, consistent with tendinosis/low-grade partial-thickness tear.. The straight and reflected heads of the rectus femoris muscle origin appear intact, as well as the conjoint tendon. The ligamentum teres appears intact where visualized. Soft tissues: Visualized muscles demonstrate normal bulk and internal signal. Quadratus femoris muscle demonstrates no internal edema to suggest ischiofemoral impingement. The proximal sciatic neurovascular bundle appears normal adjacent to the hamstring tendons. No free pelvic fluid. Bladder wall thickness is normal. Genitourinary structures and bowel loops appear normal where visualized. IMPRESSION: 1. Prior left total hip arthroplasty. No gross marrow edema. No fracture or dislocation. No suspicious intraosseous lesion. 2. No fluid distension of left hip bursa to suggest bursitis. Tendinosis/low-grade partial-thickness tear involving distal left gluteus medius and minimus at the level of greater trochanter. Tendinosis and possible very low-grade partial-thickness tear involving origins of hamstring tendons at ischial tuberosity. No other muscle or tendon signal abnormality. Dictated by: Cedric Bateman M.D. on 11/29/2020 at 14:27 Approved by: Cedric Bateman M.D. on 11/29/2020 at 14:46
== END ==
PROVIDERS: PCP Internal Medicine; Referring Provider Orthopaedic Surgery; Visit Provider Orthopaedic Surgery
DX: M70.72 Other bursitis of hip, left hip (principal); Z96.642 Presence of left artificial hip joint
CPT/HCPCS: 73721

== ENCOUNTER → 2021-05-02 07:38 | Outpatient (CLI) | payer BC, SELFPAY | PROVIDERS: PCP Internal Medicine; Referring Provider Urology; Visit Provider Urology | DX: R97.20 Elevated prostate specific antigen [PSA] (principal) | CPT/HCPCS: 36415; 84153 ==

== ENCOUNTER → 2022-05-02 10:34 | Outpatient (CLI) | payer BC, SELFPAY ==
[2022-05-04 07:09] LABS: PSA Free % 16.8 % (.); PSA, Total 6.2 ng/mL (0.0-4.0)
== END ==
PROVIDERS: PCP Internal Medicine; Referring Provider Urology; Visit Provider Urology
DX: R97.20 Elevated prostate specific antigen [PSA] (principal)
CPT/HCPCS: 36415; 84153; 84154

== ENCOUNTER → 2023-05-30 08:51 | Outpatient (CLI) | payer BC, SELFPAY ==
[2023-05-30 10:24] LABS: Aspartate Aminotransferase 33 IU/L (17-59); BUN Creatinine Ratio 20.4 (6-22); Blood Urea Nitrogen 20 mg/dL (9-20); Calcium 10.2 mg/dL (8.4-10.2); Carbon Dioxide 27 mmol/L (22-32); Chloride 103 mmol/L (98-107); Cholesterol 240 mg/dL (140-199); Estimated Glomerular Filt Rate > 60 mL/min (>60); Glucose 97 mg/dL (80-110); HDL Cholesterol 75 mg/dL (40-60); HEMOLYSIS < 15 (0-50); LDL Cholesterol Calculated 149 mg/dL (<100); Potassium 4.6 mmol/L (3.4-5.1); Sodium 137 mmol/L (137-145); Triglycerides 80 mg/dL (35-150)
[2023-06-01 09:14] LABS: PSA Free % 21.1 % (.); PSA, Total 6.2 ng/mL (0.0-4.0)
== END ==
PROVIDERS: PCP Internal Medicine; Referring Provider Internal Medicine; Visit Provider Internal Medicine
DX: R97.20 Elevated prostate specific antigen [PSA] (principal); E78.2 Mixed hyperlipidemia; N40.1 Benign prostatic hyperplasia with lower urinary tract symptoms; N13.8 Other obstructive and reflux uropathy
CPT/HCPCS: 36415; 80048; 80061; 84153; 84154; 84450

== ENCOUNTER → 2024-06-03 08:41 | Outpatient (CLI) | payer BC, SELFPAY ==
[2024-06-03 10:33] LABS: Aspartate Aminotransferase 35 IU/L (17-59); BUN Creatinine Ratio 18.9 (6-22); Blood Urea Nitrogen 21 mg/dL (9-20); Calcium 9.8 mg/dL (8.4-10.2); Carbon Dioxide 29 mmol/L (22-32); Chloride 103 mmol/L (98-107); Cholesterol 242 mg/dL (140-199); Estimated Glomerular Filt Rate > 60 mL/min (>60); Glucose 92 mg/dL (80-110); HDL Cholesterol 82 mg/dL (40-60); HEMOLYSIS < 15 (0-50); LDL Cholesterol Calculated 142 mg/dL (<100); Potassium 4.8 mmol/L (3.4-5.1); Sodium 135 mmol/L (137-145); Triglycerides 91 mg/dL (35-150)
[2024-06-05 07:08] LABS: PSA Free % 13.5 % (.); PSA, Total 11.2 ng/mL (0.0-4.0)
== END ==
PROVIDERS: PCP Internal Medicine; Referring Provider Internal Medicine; Visit Provider Internal Medicine
DX: R97.20 Elevated prostate specific antigen [PSA] (principal); I10 Essential (primary) hypertension; E78.2 Mixed hyperlipidemia
CPT/HCPCS: 36415; 80048; 80061; 84153; 84154; 84450

== ENCOUNTER → 2024-12-03 15:46 | Outpatient (CLI) | payer BC, SELFPAY ==
[2024-12-03 17:26] LABS: Prostate Specific Antigen 15.3 ng/mL (0.10-4.00)
== END ==
PROVIDERS: PCP Internal Medicine; Referring Provider Urology; Visit Provider Urology
DX: R97.20 Elevated prostate specific antigen [PSA] (principal)
CPT/HCPCS: 36415; 84153

== ENCOUNTER → 2024-12-27 14:49 | Outpatient (CLI) | payer BC, SELFPAY ==
[2024-12-27 15:40] LABS: Influenza A - CEPHEID Flu A NEGATIVE (NEGATIVE); Influenza B - CEPHEID Flu B NEGATIVE (NEGATIVE)
[2024-12-27 15:42] LABS: COVID-19 CEPHEID 4-PLEX PCR Negative (Negative)
== END ==
LOC: LAB 14:50
PROVIDERS: PCP Internal Medicine; Visit Provider Nurse Practitioner Family
DX: R05.1 Acute cough (principal)
CPT/HCPCS: 87637

== ENCOUNTER → 2024-12-27 15:12 | Outpatient (CLI) | payer BC, SELFPAY ==
--- NOTE | 2024-12-27 15:13 | DI.RAD.S_ITS ---
PROCEDURE: XR CHEST 2V INDICATIONS: Cough TECHNIQUE: 2 views of the chest were acquired. COMPARISON: None. FINDINGS: Surgical changes and devices: None. Lungs and pleura: Lungs are clear. No pleural effusions or pneumothorax. Mediastinum: Mediastinal contours are normal. Heart size is normal. Bones and chest wall: No suspicious bony abnormalities. Soft tissues appear unremarkable. IMPRESSION: No acute cardiopulmonary abnormality is seen. Dictated by: Kervin Bryan M.D. on 12/27/2024 at 15:17 Approved by: Kervin Bryan M.D. on 12/27/2024 at 15:18
== END ==
PROVIDERS: PCP Internal Medicine; Referring Provider Nurse Practitioner Family; Visit Provider Nurse Practitioner Family
DX: R05.1 Acute cough (principal)
CPT/HCPCS: 71046; 87637